=== PATIENT | male | born 1985 | race Caucasian/White ===

== ENCOUNTER 2018-02-13 06:15 | Day surgery (SDC) | payer OTHER ==
[2018-02-12 09:01] VITALS: BMI 23.6
--- NOTE | 2018-02-13 07:23 | HP ---
Admitting History and Physical - Admission History of Present Illness: Patient is 32 y/o male with a past medical history of scizoaffective disorder and medication induced pericarditis. Patient currently resides in [facility] and was transferred to [facility] for ect. This will be his first ECT, patient is a poor historian and as per medical record patient is being referred for ect because his current medication regimen has been ineffective. Patient reports he is not taking any medications. Patient does report auditory hallucinations and suicidal homicidation. Patient declines any visual hallucinations. Patient denies any homicidal ideation. History Source: Patient, Medical Record Limitations to Obtaining History: No Limitations - Smoking History Smoking history: Current every day smoker Have you smoked in the past 12 months: Yes Aproximately how many cigarettes per day: 10 - Alcohol/Substance Use Hx Alcohol Use: Yes (occasional) History of Substance Use: reports: Marijuana - Social History Usual Living Arrangement: Yes: [facility] ([facility] ADL: Independent Home Medications - Allergies Allergies/Adverse Reactions: Allergies Allergy/AdvReac Type Severity Reaction Status Date / Time clozapine [From Clozaril] Allergy Severe Rash Verified 02/11/18 15:18 lamotrigine [From Lamictal] Allergy Severe Rash Verified 02/11/18 15:17 - Home Medications Home Medications: Ambulatory Orders NK [No Known Home Medication] 02/11/18 Family Disease History - Family Disease History Family History: Denies Review of Systems - Review of Systems Constitutional: reports: No Symptoms Eyes: reports: No Symptoms HENT: reports: No Symptoms Neck: reports: No Symptoms Cardiovascular: reports: No Symptoms Respiratory: reports: No Symptoms Gastrointestinal: reports: No Symptoms Genitourinary: reports: No Symptoms Musculoskeletal: reports: No Symptoms Integumentary: reports: No Symptoms Neurological: reports: No Symptoms Endocrine: reports: No Symptoms Hematology/Lymphatic: reports: No Symptoms Psychiatric: reports: No Symptoms Physical Examination Vital Signs: Vital Signs Temperature 97.8 F 02/13/18 06:45 Pulse Rate 83 02/13/18 06:45 Respiratory Rate 18 02/13/18 06:45 Blood Pressure 120/83 02/13/18 06:45 O2 Sat by Pulse Oximetry (%) 96 02/13/18 06:45 Constitutional: Yes: Anxious, Thin Eyes: Yes: WNL, Conjunctiva Clear, EOM Intact HENT: Yes: WNL, Atraumatic, Normocephalic Neck: Yes: WNL, Supple, Trachea Midline Cardiovascular: Yes: WNL, Regular Rate and Rhythm, S1, S2 Respiratory: Yes: WNL, Regular, CTA Bilaterally Gastrointestinal: Yes: WNL, Normal Bowel Sounds, Soft Musculoskeletal: Yes: WNL Extremities: Yes: WNL Edema: No Peripheral Pulses WNL: Yes Peripheral Pulses: Left Radial: 4+, Right Radial: 4+, Left Doralis Pedis: 3+, Right Dorsalis Pedis: 3+, Left Femoral: 3+, Right Femoral: 3+ Integumentary: Yes: Tattoos, Other (closed commodones to back) Neurological: Yes: WNL, Alert, Oriented ...Motor Strength: WNL Psychiatric: Yes: WNL, Alert, Oriented Labs: reviewed 01/15/18 Imaging - Results EKG: Other (nsr) Assessment/Plan patient is a 32 y/o male that presents for ect, labs and ekg reviewed patient is medically optimized for procedure informed consent, risks/benefits to be obtained by Dr Kay
[2018-02-13] MEDS ORDERED: KETAMINE HCL 500 MG/10 ML VIAL ONE (07:47)
[2018-02-13 09:35] VITALS: TEMP 98
[2018-02-13 09:36] VITALS: BP 133/83; PULSE 83
== END 2018-02-13 09:30 ==
LOC: FECT 06:15
PROVIDERS: ATTEND Psychiatry & Neurology Psychiatry
PROC: GZB4ZZZ Other Electroconvulsive Therapy (ICD-10-PCS; principal; 2018-02-13 07:30)
DX: F25.1 Schizoaffective disorder, depressive type (principal)
CPT/HCPCS: 90870; 94760

== ENCOUNTER 2018-02-14 06:44 | Day surgery (SDC) | payer OTHER ==
[2018-02-11 15:30] VITALS: BMI 23.6
[2018-02-14] MEDS ORDERED: KETAMINE HCL 500 MG/10 ML VIAL ONE (08:12)
[2018-02-14 09:54] VITALS: TEMP 98
[2018-02-14 13:36] VITALS: BP 122/82; PULSE 78
== END 2018-02-14 10:15 ==
LOC: FECT 06:44
PROVIDERS: ATTEND Psychiatry & Neurology Psychiatry
PROC: GZB4ZZZ Other Electroconvulsive Therapy (ICD-10-PCS; principal; 2018-02-14 08:00)
DX: F25.1 Schizoaffective disorder, depressive type (principal)
CPT/HCPCS: 90870; 94760

== ENCOUNTER 2018-02-17 06:05 | Day surgery (SDC) | payer OTHER ==
[2018-02-14 16:32] VITALS: BMI 23.6
[2018-02-17] MEDS ORDERED: KETAMINE HCL 500 MG/10 ML VIAL ONE (06:51)
[2018-02-17 08:24] VITALS: TEMP 98.6
[2018-02-17 11:02] VITALS: BP 138/84; PULSE 72
== END 2018-02-17 09:15 ==
LOC: FECT 06:05
PROVIDERS: ATTEND Psychiatry & Neurology Psychiatry
PROC: GZB4ZZZ Other Electroconvulsive Therapy (ICD-10-PCS; principal; 2018-02-17 07:30)
DX: F25.1 Schizoaffective disorder, depressive type (principal)
CPT/HCPCS: 90870; 94760

== ENCOUNTER 2018-02-19 05:36 | Day surgery (SDC) | payer OTHER ==
[2018-02-14 16:35] VITALS: BMI 23.6
[2018-02-19] MEDS ORDERED: KETAMINE HCL 500 MG/10 ML VIAL ONE (06:48)
[2018-02-19] MEDS ORDERED: LACTATED RINGERS SOLUTION 1,000 ML IV SCH (07:00)
[2018-02-19 08:18] VITALS: TEMP 97.8
[2018-02-19 08:50] VITALS: BP 128/78; PULSE 86
== END 2018-02-19 08:50 ==
LOC: FECT 05:36
PROVIDERS: ATTEND Psychiatry & Neurology Psychiatry
PROC: GZB4ZZZ Other Electroconvulsive Therapy (ICD-10-PCS; principal; 2018-02-19 07:15)
DX: F25.1 Schizoaffective disorder, depressive type (principal)
CPT/HCPCS: 90870; 94760

== ENCOUNTER 2018-02-21 05:43 | Day surgery (SDC) | payer OTHER ==
[2018-02-14 17:15] VITALS: BMI 23.6
[2018-02-21] MEDS ORDERED: LACTATED RINGERS SOLUTION 1,000 ML IV SCH (07:30)
[2018-02-21] MEDS ORDERED: KETAMINE HCL 500 MG/10 ML VIAL ONE (07:52)
[2018-02-21 09:12] VITALS: TEMP 97.9
[2018-02-21 09:23] VITALS: BP 131/89; PULSE 89
== END 2018-02-21 09:30 ==
LOC: FECT 05:43
PROVIDERS: ATTEND Psychiatry & Neurology Psychiatry
PROC: GZB4ZZZ Other Electroconvulsive Therapy (ICD-10-PCS; principal; 2018-02-21 07:15)
DX: F25.1 Schizoaffective disorder, depressive type (principal)
CPT/HCPCS: 90870; 94760

== ENCOUNTER 2018-02-24 05:39 | Day surgery (SDC) | payer OTHER ==
[2018-02-24 07:03] VITALS: BMI 23.6
[2018-02-24] MEDS ORDERED: KETAMINE HCL 500 MG/10 ML VIAL ONE (07:17)
[2018-02-24 09:15] VITALS: TEMP 98.4
[2018-02-24 09:16] VITALS: BP 136/89; PULSE 89
== END 2018-02-24 09:20 ==
LOC: FECT 05:39
PROVIDERS: ATTEND Psychiatry & Neurology Psychiatry
PROC: GZB4ZZZ Other Electroconvulsive Therapy (ICD-10-PCS; principal; 2018-02-24 07:15)
DX: F25.1 Schizoaffective disorder, depressive type (principal)
CPT/HCPCS: 90870; 94760

== ENCOUNTER 2018-02-26 05:37 | Day surgery (SDC) | payer OTHER ==
[2018-02-20 09:53] VITALS: BMI 23.6
[2018-02-26 06:55] VITALS: TEMP 98
[2018-02-26] MEDS ORDERED: KETAMINE HCL 500 MG/10 ML VIAL ONE (07:12)
[2018-02-26] MEDS ORDERED: ONDANSETRON 4 MG/2 ML VIAL IVPUSH PRN (07:25)
[2018-02-26] MEDS ORDERED: LACTATED RINGERS SOLUTION 1,000 ML IV SCH (07:30)
[2018-02-26 08:52] VITALS: BP 130/85; PULSE 96
== END 2018-02-26 09:00 ==
LOC: FECT 05:37
PROVIDERS: ATTEND Psychiatry & Neurology Psychiatry
PROC: GZB4ZZZ Other Electroconvulsive Therapy (ICD-10-PCS; principal; 2018-02-26 07:00)
DX: F25.1 Schizoaffective disorder, depressive type (principal)
CPT/HCPCS: 90870; 94760

== ENCOUNTER 2018-02-28 05:50 | Day surgery (SDC) | payer OTHER ==
[2018-02-20 09:58] VITALS: BMI 23.6
[2018-02-28] MEDS ORDERED: KETAMINE HCL 500 MG/10 ML VIAL ONE (07:43)
[2018-02-28 08:45] VITALS: TEMP 98.1
[2018-02-28] MEDS ORDERED: ONDANSETRON 4 MG/2 ML VIAL IVPUSH PRN (09:05)
[2018-02-28] MEDS ORDERED: ACETAMINOPHEN 325 MG TABLET (FP) PO PRN (09:05)
[2018-02-28] MEDS ORDERED: PROMETHAZINE HCL 25 MG/1 ML VIAL IVPUSH PRN (09:05)
[2018-02-28 09:11] VITALS: BP 133/83; PULSE 86
[2018-02-28] MEDS ORDERED: LACTATED RINGERS SOLUTION 1,000 ML IV SCH (09:15)
== END 2018-02-28 09:10 ==
LOC: FECT 05:50
PROVIDERS: ATTEND Psychiatry & Neurology Psychiatry
PROC: GZB4ZZZ Other Electroconvulsive Therapy (ICD-10-PCS; principal; 2018-02-28 07:00)
DX: F25.1 Schizoaffective disorder, depressive type (principal)
CPT/HCPCS: 90870; 94760

== ENCOUNTER 2018-03-05 05:38 | Day surgery (SDC) | payer OTHER ==
[2018-02-27 13:43] VITALS: BMI 23.6
[2018-03-05] MEDS ORDERED: ONDANSETRON 4 MG/2 ML VIAL IVPUSH PRN (07:35)
[2018-03-05] MEDS ORDERED: ACETAMINOPHEN 325 MG TABLET (FP) PO PRN (07:35)
[2018-03-05] MEDS ORDERED: KETAMINE HCL 500 MG/10 ML VIAL ONE (07:42)
[2018-03-05] MEDS ORDERED: LACTATED RINGERS SOLUTION 1,000 ML IV SCH (07:45)
[2018-03-05 08:48] VITALS: TEMP 98
[2018-03-05 09:12] VITALS: BP 133/88; PULSE 81
== END 2018-03-05 09:30 ==
LOC: FECT 05:38
PROVIDERS: ATTEND Psychiatry & Neurology Psychiatry
PROC: GZB4ZZZ Other Electroconvulsive Therapy (ICD-10-PCS; principal; 2018-03-05 07:00)
DX: F25.1 Schizoaffective disorder, depressive type (principal)
CPT/HCPCS: 90870; 94760

== ENCOUNTER 2018-03-07 05:39 | Day surgery (SDC) | payer OTHER ==
[2018-02-27 13:49] VITALS: BMI 23.6
[2018-03-07] MEDS ORDERED: KETAMINE HCL 500 MG/10 ML VIAL ONE (07:24)
[2018-03-07 08:49] VITALS: TEMP 98.1
[2018-03-07 11:03] VITALS: BP 133/91; PULSE 80
== END 2018-03-07 09:00 ==
LOC: FECT 05:39
PROVIDERS: ATTEND Psychiatry & Neurology Psychiatry
PROC: GZB4ZZZ Other Electroconvulsive Therapy (ICD-10-PCS; principal; 2018-03-07 07:00)
DX: F25.1 Schizoaffective disorder, depressive type (principal)
CPT/HCPCS: 90870; 94760

== ENCOUNTER 2018-03-10 05:39 | Day surgery (SDC) | payer OTHER ==
[2018-02-28 11:09] VITALS: BMI 23.6
[2018-03-10] MEDS ORDERED: KETAMINE HCL 500 MG/10 ML VIAL ONE (06:59)
[2018-03-10 07:59] VITALS: TEMP 97.7
[2018-03-10 08:28] VITALS: PULSE 76
[2018-03-10 10:09] VITALS: BP 126/87
== END 2018-03-10 10:00 | disposition home or self-care (01) ==
LOC: FECT 05:39
PROVIDERS: ATTEND Psychiatry & Neurology Psychiatry
PROC: GZB4ZZZ Other Electroconvulsive Therapy (ICD-10-PCS; principal; 2018-03-10 07:00)
DX: F25.1 Schizoaffective disorder, depressive type (principal)
CPT/HCPCS: 90870; 94760

== ENCOUNTER 2018-03-12 05:45 | Day surgery (SDC) | payer OTHER ==
[2018-03-10 09:17] VITALS: BMI 23.6
[2018-03-12] MEDS ORDERED: KETAMINE HCL 500 MG/10 ML VIAL ONE (07:24)
[2018-03-12 07:55] VITALS: TEMP 97.7
[2018-03-12] MEDS ORDERED: ACETAMINOPHEN 325 MG TABLET (FP) PO PRN (07:56)
[2018-03-12] MEDS ORDERED: ONDANSETRON 4 MG/2 ML VIAL IVPUSH PRN (07:56)
[2018-03-12] MEDS ORDERED: PROMETHAZINE HCL 25 MG/1 ML VIAL IVPUSH PRN (07:56)
[2018-03-12] MEDS ORDERED: LACTATED RINGERS SOLUTION 1,000 ML IV SCH (08:00)
[2018-03-12 09:22] VITALS: BP 135/85; PULSE 76
== END 2018-03-12 10:00 ==
LOC: FECT 05:45
PROVIDERS: ATTEND Psychiatry & Neurology Psychiatry
PROC: GZB4ZZZ Other Electroconvulsive Therapy (ICD-10-PCS; principal; 2018-03-12 07:45)
DX: F25.1 Schizoaffective disorder, depressive type (principal)

== ENCOUNTER 2018-03-14 05:45 | Day surgery (SDC) | payer OTHER ==
[2018-03-10 09:01] VITALS: BMI 23.6
[2018-03-14] MEDS ORDERED: KETAMINE HCL 500 MG/10 ML VIAL ONE (06:52)
[2018-03-14] MEDS ORDERED: PROMETHAZINE HCL 25 MG/1 ML VIAL IVPUSH PRN (07:54)
[2018-03-14] MEDS ORDERED: ONDANSETRON 4 MG/2 ML VIAL IVPUSH PRN (07:54)
[2018-03-14] MEDS ORDERED: ACETAMINOPHEN 325 MG TABLET (FP) PO PRN (07:54)
[2018-03-14] MEDS ORDERED: LACTATED RINGERS SOLUTION 1,000 ML IV SCH (08:00)
--- NOTE | 2018-03-14 08:14 | HP ---
Admitting History and Physical - Admission History of Present Illness: Patient is a 32 y/o male with a past medical history of scizoaffective disorder and medication induced pancreatitis, patient presents of ect, his last ect was 03/12/18. Patient voices no complaints. He reports feeling well, he denies any suicidal or homicidal ideation, visual or auditory hallucinations. History Source: Patient Limitations to Obtaining History: No Limitations - Smoking History Smoking history: Current every day smoker Have you smoked in the past 12 months: Yes Aproximately how many cigarettes per day: 10 - Alcohol/Substance Use Hx Alcohol Use: Yes (OCCASIONAL) History of Substance Use: reports: Marijuana - Social History ADL: Independent Home Medications - Allergies Allergies/Adverse Reactions: Allergies Allergy/AdvReac Type Severity Reaction Status Date / Time clozapine [From Clozaril] Allergy Severe Rash Verified 02/11/18 15:18 lamotrigine [From Lamictal] Allergy Severe Rash Verified 02/11/18 15:17 - Home Medications Home Medications: Ambulatory Orders NK [No Known Home Medication] 02/11/18 Family Disease History - Family Disease History Family History: Denies Review of Systems - Review of Systems Constitutional: reports: No Symptoms Eyes: reports: No Symptoms HENT: reports: No Symptoms Neck: reports: No Symptoms Cardiovascular: reports: No Symptoms Respiratory: reports: No Symptoms Gastrointestinal: reports: No Symptoms Genitourinary: reports: No Symptoms Musculoskeletal: reports: No Symptoms Integumentary: reports: No Symptoms Neurological: reports: No Symptoms Endocrine: reports: No Symptoms Hematology/Lymphatic: reports: No Symptoms Psychiatric: reports: No Symptoms Physical Examination Vital Signs: Vital Signs Temperature 98.0 F 03/14/18 07:40 Pulse Rate 67 03/14/18 07:40 Respiratory Rate 14 03/14/18 07:40 Blood Pressure 131/90 03/14/18 07:40 O2 Sat by Pulse Oximetry (%) 100 03/14/18 07:33 Constitutional: Yes: Well Nourished, No Distress, Calm Eyes: Yes: WNL, Conjunctiva Clear, EOM Intact HENT: Yes: WNL, Atraumatic, Normocephalic Neck: Yes: WNL, Supple, Trachea Midline Cardiovascular: Yes: WNL, Regular Rate and Rhythm, S1, S2 Respiratory: Yes: WNL, Regular, CTA Bilaterally Gastrointestinal: Yes: WNL, Normal Bowel Sounds, Soft ...Rectal Exam: Yes: Deferred Renal/: Yes: WNL Breast(s): Yes: WNL Musculoskeletal: Yes: WNL Extremities: Yes: WNL Edema: No Peripheral Pulses WNL: Yes Peripheral Pulses: Left Radial: 4+, Right Radial: 4+, Left Doralis Pedis: 3+, Right Dorsalis Pedis: 3+, Left Femoral: 3+, Right Femoral: 3+ Integumentary: Yes: WNL Neurological: Yes: WNL, Alert, Oriented ...Motor Strength: WNL Psychiatric: Yes: WNL, Alert, Oriented Labs: reviewed 01/15/18 Imaging - Results EKG: Image Reviewed, Other (nsr) Assessment/Plan patient is a 32 y/o male that presents for ect, labs and ekg reviewed patient is medically optimized for procedure informed consent, risk/benefits to be obtained by Dr Kay
[2018-03-14 08:33] VITALS: TEMP 97.7
[2018-03-14 08:35] VITALS: BP 123/80; PULSE 76
== END 2018-03-14 08:50 ==
LOC: FECT 05:45
PROVIDERS: ATTEND Psychiatry & Neurology Psychiatry
PROC: GZB4ZZZ Other Electroconvulsive Therapy (ICD-10-PCS; principal; 2018-03-14 08:00)
DX: F25.1 Schizoaffective disorder, depressive type (principal)

== ENCOUNTER 2018-03-19 05:42 | Day surgery (SDC) | payer OTHER ==
[2018-03-10 09:09] VITALS: BMI 23.6
[2018-03-19] MEDS ORDERED: KETAMINE HCL 500 MG/10 ML VIAL ONE (07:25)
[2018-03-19] MEDS ORDERED: ONDANSETRON 4 MG/2 ML VIAL IVPUSH PRN (08:59)
[2018-03-19] MEDS ORDERED: LACTATED RINGERS SOLUTION 1,000 ML IV SCH (09:00)
[2018-03-21] MEDS ORDERED: KETAMINE HCL 500 MG/10 ML VIAL ONE (07:04)
[2018-03-21 08:56] VITALS: TEMP 98.6
[2018-03-21 08:58] VITALS: BP 119/77; PULSE 66
== END 2018-03-19 09:10 ==
LOC: FECT 05:42
PROVIDERS: ATTEND Psychiatry & Neurology Psychiatry
PROC: GZB4ZZZ Other Electroconvulsive Therapy (ICD-10-PCS; principal; 2018-03-19 07:30)
DX: F25.1 Schizoaffective disorder, depressive type (principal)
CPT/HCPCS: 90870; 94760

== ENCOUNTER 2018-03-21 05:40 | Day surgery (SDC) | payer OTHER ==
[2018-03-21 06:53] VITALS: TEMP 98.2; BMI 23.6
[2018-03-21 08:12] VITALS: PULSE 73
[2018-03-21 09:33] VITALS: BP 115/68
== END 2018-03-21 09:25 | disposition home or self-care (01) ==
LOC: FECT 05:40
PROVIDERS: ATTEND Psychiatry & Neurology Psychiatry
PROC: GZB4ZZZ Other Electroconvulsive Therapy (ICD-10-PCS; principal; 2018-03-21 07:30)
DX: F25.1 Schizoaffective disorder, depressive type (principal)
CPT/HCPCS: 90870; 94760

== ENCOUNTER 2018-03-24 05:41 | Day surgery (SDC) | payer OTHER ==
[2018-03-10 09:05] VITALS: BMI 23.6
[2018-03-24] MEDS ORDERED: KETAMINE HCL 500 MG/10 ML VIAL ONE (07:08)
[2018-03-24 08:35] VITALS: BP 138/88; PULSE 64; TEMP 97.6
== END 2018-03-24 08:35 ==
LOC: FECT 05:41
PROVIDERS: ATTEND Psychiatry & Neurology Psychiatry
PROC: GZB4ZZZ Other Electroconvulsive Therapy (ICD-10-PCS; principal; 2018-03-24 07:15)
DX: F25.1 Schizoaffective disorder, depressive type (principal)
CPT/HCPCS: 90870; 94760

== ENCOUNTER 2018-03-26 05:37 | Day surgery (SDC) | payer OTHER ==
[2018-03-24 11:47] VITALS: BMI 23.6
[2018-03-26 06:31] VITALS: TEMP 98.2
[2018-03-26] MEDS ORDERED: KETAMINE HCL 500 MG/10 ML VIAL ONE (06:53)
[2018-03-26 08:53] VITALS: BP 132/88; PULSE 77
== END 2018-03-26 08:30 ==
LOC: FECT 05:37
PROVIDERS: ATTEND Psychiatry & Neurology Psychiatry
PROC: GZB4ZZZ Other Electroconvulsive Therapy (ICD-10-PCS; principal; 2018-03-26 07:30)
DX: F25.1 Schizoaffective disorder, depressive type (principal)
CPT/HCPCS: 90870; 94760

== ENCOUNTER 2018-03-28 05:41 | Day surgery (SDC) | payer OTHER ==
[2018-03-24 12:04] VITALS: BMI 23.6
[2018-03-28 08:26] VITALS: TEMP 98.2
[2018-03-28 09:09] VITALS: BP 126/82; PULSE 78
== END 2018-03-28 09:12 | disposition home or self-care (01) ==
LOC: FECT 05:41
PROVIDERS: ATTEND Psychiatry & Neurology Psychiatry
PROC: GZB4ZZZ Other Electroconvulsive Therapy (ICD-10-PCS; principal; 2018-03-28 08:00)
DX: F25.1 Schizoaffective disorder, depressive type (principal)
CPT/HCPCS: 90870; 94760

== ENCOUNTER 2018-04-04 05:39 | Day surgery (SDC) | payer OTHER ==
[2018-04-04 06:58] VITALS: BMI 23.6
[2018-04-04] MEDS ORDERED: KETAMINE HCL 500 MG/10 ML VIAL ONE (07:23)
[2018-04-04 08:24] VITALS: TEMP 97.8
[2018-04-04 08:43] VITALS: BP 124/87; PULSE 80
== END 2018-04-04 09:20 ==
LOC: FECT 05:39
PROVIDERS: ATTEND Psychiatry & Neurology Psychiatry
PROC: GZB4ZZZ Other Electroconvulsive Therapy (ICD-10-PCS; principal; 2018-04-04 07:15)
DX: F25.1 Schizoaffective disorder, depressive type (principal)
CPT/HCPCS: 90870; 94760

== ENCOUNTER 2018-04-10 05:45 | Day surgery (SDC) | payer OTHER ==
[2018-04-04 14:25] VITALS: BMI 23.6
[2018-04-10 06:47] VITALS: TEMP 98.2
[2018-04-10] MEDS ORDERED: KETAMINE HCL 500 MG/10 ML VIAL ONE (06:57)
[2018-04-10 08:25] VITALS: BP 133/86; PULSE 87
== END 2018-04-10 08:40 ==
LOC: FECT 05:45
PROVIDERS: ATTEND Psychiatry & Neurology Psychiatry
PROC: GZB4ZZZ Other Electroconvulsive Therapy (ICD-10-PCS; principal; 2018-04-10 07:30)
DX: F25.9 Schizoaffective disorder, unspecified (principal)
CPT/HCPCS: 90870; 94760

== ENCOUNTER 2018-04-16 05:48 | Day surgery (SDC) | payer OTHER ==
--- NOTE | 2018-04-16 07:41 | HP ---
CHIEF COMPLAINT: Schizoaffective/bipolar disorder PCP: Dr. Kendall Saucedo, [place], [place] Primary Psych: Inpatient at [facility] HISTORY OF PRESENT ILLNESS: The patient is a 32 year-old male with a PMH significant for schizoaffective/ bipolar disorder and medication-induced pancreatitis. He has been receiving ECT since He presents today for ECT. Events since last ECT: None PAST MEDICAL HISTORY: Schizoaffective/bipolar disorder Pancreatitis PAST SURGICAL HISTORY: None reported Social History: Smoking: currrent every day Alcohol:occasional Drugs: denies Family History: Allergies clozapine [From Clozaril] Allergy (Severe, Verified 04/11/18 14:44) Rash lamotrigine [From Lamictal] Allergy (Severe, Verified 04/11/18 14:44) Rash HOME MEDICATIONS: Home Medications Medication Instructions Recorded [place] Carbonate [Eskalith -] 600 mg PO BID 03/24/18 Haloperidol [Haldol -] 5 mg PO BID 04/04/18 Benztropine Mesylate [Cogentin -] 1 mg PO BID PRN 04/10/18 Divalproex [Depakote -] 500 mg PO HS 04/10/18 Olanzapine 5 mg PO BID PRN 04/10/18 Olanzapine [Zyprexa] 15 mg IM BID PRN 04/10/18 REVIEW OF SYSTEMS CONSTITUTIONAL: Absent: fever, chills, diaphoresis, generalized weakness, malaise, loss of appetite, weight change HEENT: Absent: rhinorrhea, nasal congestion, throat pain, throat swelling, difficulty swallowing, mouth swelling, ear pain, eye pain, visual changes CARDIOVASCULAR: Absent: chest pain, syncope, palpitations, irregular heart rate, lightheadedness , peripheral edema RESPIRATORY: Absent: cough, shortness of breath, dyspnea with exertion, orthopnea, wheezing, stridor, hemoptysis GASTROINTESTINAL: Absent: abdominal pain, abdominal distension, nausea, vomiting, diarrhea, constipation, melena, hematochezia GENITOURINARY: Absent: dysuria, frequency, urgency, hesitancy, hematuria, flank pain, genital pain MUSCULOSKELETAL: Absent: myalgia, arthralgia, joint swelling, back pain, neck pain SKIN: Absent: rash, itching, pallor HEMATOLOGIC/IMMUNOLOGIC: Absent: easy bleeding, easy bruising, lymphadenopathy, frequent infections ENDOCRINE: Absent: unexplained weight gain, unexplained weight loss, heat intolerance, cold intolerance NEUROLOGIC: Absent: headache, focal weakness or paresthesias, dizziness, unsteady gait, seizure, mental status changes, bladder or bowel incontinence PHYSICAL EXAMINATION GENERAL: Awake, alert, and fully oriented, in no acute distress. HEAD: Normal with no signs of trauma. LUNGS: Breath sounds equal, clear to auscultation bilaterally. No wheezes, and no crackles. No accessory muscle use. HEART: Regular rate and rhythm, normal S1 and S2 without murmur, rub or gallop. ABDOMEN: Soft, nontender, not distended, normoactive bowel sounds, no guarding, no rebound, no masses. No hepatomegaly or splenomegaly. MUSCULOSKELETAL: Normal range of motion at all joints. No bony deformities or tenderness. No CVA tenderness. UPPER EXTREMITIES: 2+ pulses, warm, well-perfused. No cyanosis. No clubbing. No peripheral edema. LOWER EXTREMITIES: 2+ pulses, warm, well-perfused. No calf tenderness. No peripheral edema. NEUROLOGICAL: Cranial nerves II-XII intact. Normal speech. Normal gait. ASSESSMENT/PLAN: 32 year-old male with a PMH significant for schizoaffective/bipolar disorder and medication-induced pancreatitis. He presents today for ECT. Cardiac --no cardiac history --Revised Cardiac Risk Index for Pre-Operative Risk: 0 points, 0.4% risk of major cardiac event Pulmonary --no pulmonary history Neurological --no neurological or neurosurgical history; no history of trauma Anesthesia --no known history of problems with anesthesia ECT is a low risk procedure. The relative benefits of the planned procedure outweigh the relative risks for this patient at this time. Visit type - Emergency Visit Emergency Visit: No - New Patient This patient is new to me today: Yes Date on this admission: 04/16/18 - Critical Care Critical Care patient: No
[2018-04-16 07:56] VITALS: BMI 23.6
[2018-04-16] MEDS ORDERED: KETAMINE HCL 500 MG/10 ML VIAL ONE (08:41)
[2018-04-16 10:36] VITALS: PULSE 88; TEMP 97.8
[2018-04-16 10:47] VITALS: BP 121/76
== END 2018-04-16 10:20 | disposition home or self-care (01) ==
LOC: FECT 05:48
PROVIDERS: ATTEND Psychiatry & Neurology Psychiatry
PROC: GZB4ZZZ Other Electroconvulsive Therapy (ICD-10-PCS; principal; 2018-04-16 08:15)
DX: F25.1 Schizoaffective disorder, depressive type (principal)
CPT/HCPCS: 90870; 94760

== ENCOUNTER 2018-04-24 05:47 | Day surgery (SDC) | payer OTHER ==
[2018-04-24 06:41] VITALS: TEMP 97.6; BMI 23.6
[2018-04-24] MEDS ORDERED: KETAMINE HCL 500 MG/10 ML VIAL ONE (06:57)
[2018-04-24 08:22] VITALS: BP 132/82; PULSE 78
== END 2018-04-24 08:20 ==
LOC: FECT 05:47
PROVIDERS: ATTEND Psychiatry & Neurology Psychiatry
PROC: GZB4ZZZ Other Electroconvulsive Therapy (ICD-10-PCS; principal; 2018-04-24 07:45)
DX: F25.1 Schizoaffective disorder, depressive type (principal)
CPT/HCPCS: 90870; 94760

== ENCOUNTER 2018-05-01 05:42 | Day surgery (SDC) | payer OTHER ==
[2018-05-01 06:46] VITALS: BMI 23.6
[2018-05-01] MEDS ORDERED: KETAMINE HCL 500 MG/10 ML VIAL ONE (07:34)
[2018-05-01 08:35] VITALS: TEMP 97.5
[2018-05-01 08:59] VITALS: BP 125/85; PULSE 69
== END 2018-05-01 09:15 ==
LOC: FASU 05:42
PROVIDERS: ATTEND Psychiatry & Neurology Psychiatry
PROC: GZB4ZZZ Other Electroconvulsive Therapy (ICD-10-PCS; principal; 2018-05-01 07:15)
DX: F25.0 Schizoaffective disorder, bipolar type (principal)
CPT/HCPCS: 90870; 94760

== ENCOUNTER 2018-05-08 05:45 | Day surgery (SDC) | payer OTHER ==
[2018-05-08 06:39] VITALS: TEMP 98; BMI 23.6
[2018-05-08] MEDS ORDERED: KETAMINE HCL 500 MG/10 ML VIAL ONE (07:04)
[2018-05-08 08:18] VITALS: PULSE 77
[2018-05-08 08:47] VITALS: BP 133/74
== END 2018-05-08 08:30 ==
LOC: FECT 05:45
PROVIDERS: ATTEND Psychiatry & Neurology Psychiatry
PROC: GZB4ZZZ Other Electroconvulsive Therapy (ICD-10-PCS; principal; 2018-05-08 07:30)
DX: F25.9 Schizoaffective disorder, unspecified (principal)
CPT/HCPCS: 90870; 94760

== ENCOUNTER 2018-05-15 05:41 | Day surgery (SDC) | payer OTHER ==
[2018-05-15 06:52] VITALS: BMI 23.6
[2018-05-15] MEDS ORDERED: KETAMINE HCL 500 MG/10 ML VIAL ONE (07:22)
[2018-05-15 08:32] VITALS: TEMP 97.9
[2018-05-15 08:42] VITALS: BP 128/81; PULSE 73
== END 2018-05-15 08:43 | disposition home or self-care (01) ==
LOC: FECT 05:41
PROVIDERS: ATTEND Psychiatry & Neurology Psychiatry
PROC: GZB4ZZZ Other Electroconvulsive Therapy (ICD-10-PCS; principal; 2018-05-15 07:30)
DX: F25.1 Schizoaffective disorder, depressive type (principal)
CPT/HCPCS: 90870; 94760

== ENCOUNTER 2018-05-22 05:45 | Day surgery (SDC) | payer OTHER ==
[2018-05-22 07:36] VITALS: BMI 23.6
--- NOTE | 2018-05-22 07:42 | HP ---
CHIEF COMPLAINT: Schizoaffective/bipolar disorder PCP: Dr. Kendall Saucedo, [place], [place] Primary Psych: Inpatient at [facility] HISTORY OF PRESENT ILLNESS: The patient is a 32 year-old male with a PMH significant for schizoaffective/ bipolar disorder and medication-induced pancreatitis. He began ECT in January 2018. He presents today for ECT. Events since last ECT: * Increased depakote 500mg to 750mg qhs - tolerating well PAST MEDICAL HISTORY: Schizoaffective/bipolar disorder Pancreatitis PAST SURGICAL HISTORY: None reported Social History: Smoking: currrent every day Alcohol:occasional Drugs: denies Allergies clozapine [From Clozaril] Allergy (Severe, Verified 04/11/18 14:44) Rash lamotrigine [From Lamictal] Allergy (Severe, Verified 04/11/18 14:44) Rash HOME MEDICATIONS: Home Medications Medication Instructions Recorded [place] Carbonate [Eskalith -] 600 mg PO BID 03/24/18 Haloperidol [Haldol -] 5 mg PO BID 04/04/18 Benztropine Mesylate [Cogentin -] 1 mg PO BID PRN 04/10/18 Divalproex [Depakote -] 750 mg PO HS 04/10/18 Olanzapine 5 mg PO BID PRN 04/10/18 Olanzapine [Zyprexa] 15 mg IM BID PRN 04/10/18 REVIEW OF SYSTEMS CONSTITUTIONAL: Absent: fever, chills, diaphoresis, generalized weakness, malaise, loss of appetite, weight change HEENT: Absent: rhinorrhea, nasal congestion, throat pain, throat swelling, difficulty swallowing, mouth swelling, ear pain, eye pain, visual changes CARDIOVASCULAR: Absent: chest pain, syncope, palpitations, irregular heart rate, lightheadedness , peripheral edema RESPIRATORY: Absent: cough, shortness of breath, dyspnea with exertion, orthopnea, wheezing, stridor, hemoptysis GASTROINTESTINAL: Absent: abdominal pain, abdominal distension, nausea, vomiting, diarrhea, constipation, melena, hematochezia GENITOURINARY: Absent: dysuria, frequency, urgency, hesitancy, hematuria, flank pain, genital pain MUSCULOSKELETAL: Absent: myalgia, arthralgia, joint swelling, back pain, neck pain SKIN: Absent: rash, itching, pallor HEMATOLOGIC/IMMUNOLOGIC: Absent: easy bleeding, easy bruising, lymphadenopathy, frequent infections ENDOCRINE: Absent: unexplained weight gain, unexplained weight loss, heat intolerance, cold intolerance NEUROLOGIC: Absent: headache, focal weakness or paresthesias, dizziness, unsteady gait, seizure, mental status changes, bladder or bowel incontinence PHYSICAL EXAMINATION Vital Signs - 24 hr 05/22/18 07:32 Temperature 98.2 F Pulse Rate 69 Respiratory 18 Rate Blood Pressure 104/68 O2 Sat by Pulse 97 Oximetry (%) GENERAL: Awake, alert, and fully oriented, in no acute distress. HEAD: Normal with no signs of trauma. EYES: Pupils equal, round and reactive to light, sclera anicteric, conjunctiva clear. LUNGS: Breath sounds equal, clear to auscultation bilaterally. No wheezes, and no crackles. No accessory muscle use. HEART: Regular rate and rhythm, normal S1 and S2 ABDOMEN: Soft, nontender, not distended MUSCULOSKELETAL: Normal range of motion at all joints. No bony deformities or tenderness. No CVA tenderness. UPPER EXTREMITIES: 2+ pulses, warm, well-perfused. No cyanosis. No clubbing. No peripheral edema. LOWER EXTREMITIES: 2+ pulses, warm, well-perfused. No calf tenderness. No peripheral edema. NEUROLOGICAL: Cranial nerves II-XII intact. Normal speech. ASSESSMENT/PLAN: The patient is a 32 year-old male with a PMH significant for schizoaffective/ bipolar disorder and medication-induced pancreatitis. He presents today for ECT. Cardiac --no cardiac history --Revised Cardiac Risk Index for Pre-Operative Risk: 0 points, 0.4% risk of major cardiac event Pulmonary --no pulmonary history Neurological --no neurological or neurosurgical history; no history of trauma Anesthesia --no reported problems with anesthesia ECT is a low risk procedure. The relative benefits of the planned procedure outweigh the relative risks for this patient at this time. Visit type - Emergency Visit Emergency Visit: No - New Patient This patient is new to me today: Yes Date on this admission: 05/22/18 - Critical Care Critical Care patient: No
[2018-05-22] MEDS ORDERED: KETAMINE HCL 500 MG/10 ML VIAL ONE (08:03)
[2018-05-22 09:19] VITALS: PULSE 74; TEMP 97.5
[2018-05-22 09:59] VITALS: BP 118/78
== END 2018-05-22 09:45 | disposition home or self-care (01) ==
LOC: FECT 05:45
PROVIDERS: ATTEND Psychiatry & Neurology Psychiatry
PROC: GZB4ZZZ Other Electroconvulsive Therapy (ICD-10-PCS; principal; 2018-05-22 07:30)
DX: F25.1 Schizoaffective disorder, depressive type (principal)
CPT/HCPCS: 90870; 94760

== ENCOUNTER 2018-05-29 05:54 | Day surgery (SDC) | payer OTHER ==
[2018-05-29 07:00] VITALS: TEMP 97.7; BMI 22.5
[2018-05-29] MEDS ORDERED: KETAMINE HCL 500 MG/10 ML VIAL ONE (08:18)
[2018-05-29 10:04] VITALS: BP 122/87; PULSE 77
== END 2018-05-29 09:40 | disposition home or self-care (01) ==
LOC: FECT 05:54
PROVIDERS: ATTEND Psychiatry & Neurology Psychiatry
PROC: GZB4ZZZ Other Electroconvulsive Therapy (ICD-10-PCS; principal; 2018-05-29 08:15)
DX: F25.9 Schizoaffective disorder, unspecified (principal)
CPT/HCPCS: 90870; 94760

== ENCOUNTER 2018-06-05 05:49 | Day surgery (SDC) | payer OTHER ==
[2018-06-05 06:33] VITALS: BMI 22.5
[2018-06-05] MEDS ORDERED: KETAMINE HCL SYRINGES 150 MG/3 ML VIAL ONE (06:55)
[2018-06-05 08:16] VITALS: TEMP 97.4
[2018-06-05 08:37] VITALS: BP 122/82; PULSE 77
== END 2018-06-05 08:30 ==
LOC: FECT 05:49
PROVIDERS: ATTEND Psychiatry & Neurology Psychiatry
PROC: GZB4ZZZ Other Electroconvulsive Therapy (ICD-10-PCS; principal; 2018-06-05 08:15)
DX: F25.1 Schizoaffective disorder, depressive type (principal)
CPT/HCPCS: 90870; 94760

== ENCOUNTER 2018-06-09 05:52 | Day surgery (SDC) | payer OTHER ==
[2018-06-09 06:58] VITALS: BMI 22.5
[2018-06-09] MEDS ORDERED: KETAMINE HCL 500 MG/10 ML VIAL ONE (07:23)
[2018-06-09 08:52] VITALS: TEMP 97.8
[2018-06-09 08:53] VITALS: BP 139/82; PULSE 82
[2018-06-09] MEDS ORDERED: ACETAMINOPHEN 325 MG TABLET (FP) PO PRN (09:41)
[2018-06-09] MEDS ORDERED: PROMETHAZINE HCL 25 MG/1 ML VIAL IVPB PRN (09:41)
[2018-06-09] MEDS ORDERED: LACTATED RINGERS SOLUTION 1,000 ML IV SCH (09:45)
== END 2018-06-09 08:57 | disposition home or self-care (01) ==
LOC: FECT 05:52
PROVIDERS: ATTEND Psychiatry & Neurology Psychiatry
PROC: GZB4ZZZ Other Electroconvulsive Therapy (ICD-10-PCS; principal; 2018-06-09 08:00)
DX: F25.1 Schizoaffective disorder, depressive type (principal)
CPT/HCPCS: 90870; 94760

== ENCOUNTER 2018-06-12 05:44 | Day surgery (SDC) | payer OTHER ==
[2018-06-12 06:35] VITALS: BMI 22.5
[2018-06-12] MEDS ORDERED: KETAMINE HCL SYRINGES 150 MG/3 ML VIAL ONE (06:55)
[2018-06-12] MEDS ORDERED: ONDANSETRON 4 MG/2 ML VIAL IVPUSH PRN (07:05)
[2018-06-12] MEDS ORDERED: LACTATED RINGERS SOLUTION 1,000 ML IV SCH (07:15)
[2018-06-12 07:56] VITALS: PULSE 88; TEMP 98.2
[2018-06-12 08:11] VITALS: BP 120/72
== END 2018-06-12 08:15 ==
LOC: FECT 05:44
PROVIDERS: ATTEND Psychiatry & Neurology Psychiatry
PROC: GZB4ZZZ Other Electroconvulsive Therapy (ICD-10-PCS; principal; 2018-06-12 07:45)
DX: F25.0 Schizoaffective disorder, bipolar type (principal)
CPT/HCPCS: 90870; 94760

== ENCOUNTER 2018-06-16 05:47 | Day surgery (SDC) | payer OTHER ==
[2018-06-16 07:15] VITALS: TEMP 98; BMI 22.5
[2018-06-16] MEDS ORDERED: KETAMINE HCL 500 MG/10 ML VIAL ONE (08:34)
[2018-06-16 10:09] VITALS: BP 139/89; PULSE 81
== END 2018-06-16 10:10 ==
LOC: FECT 05:47
PROVIDERS: ATTEND Psychiatry & Neurology Psychiatry
PROC: GZB4ZZZ Other Electroconvulsive Therapy (ICD-10-PCS; principal; 2018-06-16 07:30)
DX: F25.0 Schizoaffective disorder, bipolar type (principal)
CPT/HCPCS: 90870; 94760

== ENCOUNTER 2018-06-19 05:48 | Day surgery (SDC) | payer OTHER ==
[2018-06-19 06:39] VITALS: BMI 22.5
[2018-06-19] MEDS ORDERED: KETAMINE HCL SYRINGES 150 MG/3 ML VIAL ONE (06:58)
[2018-06-19 08:13] VITALS: TEMP 97.8
[2018-06-19 08:37] VITALS: BP 134/96; PULSE 94
== END 2018-06-19 08:37 | disposition home or self-care (01) ==
LOC: FECT 05:48
PROVIDERS: ATTEND Psychiatry & Neurology Psychiatry
PROC: GZB4ZZZ Other Electroconvulsive Therapy (ICD-10-PCS; principal; 2018-06-19 07:30)
DX: F25.0 Schizoaffective disorder, bipolar type (principal)
CPT/HCPCS: 90870; 94760

== ENCOUNTER 2018-06-23 05:42 | Day surgery (SDC) | payer OTHER ==
[2018-06-23 07:05] VITALS: BMI 22.5
--- NOTE | 2018-06-23 07:35 | HP ---
CHIEF COMPLAINT: Schizoaffective/bipolar disorder PCP: Dr. Kendall Saucedo, [place], [place] Primary Psych: Inpatient at [facility] HISTORY OF PRESENT ILLNESS: The patient is a 32 year-old male with a PMH significant for schizoaffective/ bipolar disorder and medication-induced pancreatitis. He began ECT in January 2018. He presents today for ECT. Events since last ECT: * None reported PAST MEDICAL HISTORY: Schizoaffective/bipolar disorder Pancreatitis PAST SURGICAL HISTORY: None reported Social History: Smoking: currrent every day Alcohol:occasional Drugs: denies Allergies clozapine [From Clozaril] Allergy (Severe, Verified 04/11/18 14:44) Rash lamotrigine [From Lamictal] Allergy (Severe, Verified 04/11/18 14:44) Rash HOME MEDICATIONS: Home Medications Medication Instructions Recorded [place] Carbonate [Eskalith -] 600 mg PO BID 03/24/18 Haloperidol [Haldol -] 5 mg PO BID 04/04/18 Benztropine Mesylate [Cogentin -] 1 mg PO BID PRN 04/10/18 Divalproex [Depakote -] 1,000 mg PO HS 04/10/18 Olanzapine [Zyprexa] 15 mg IM BID PRN 04/10/18 Olanzapine 15 mg PO BID 05/30/18 REVIEW OF SYSTEMS CONSTITUTIONAL: Absent: fever, chills, diaphoresis, generalized weakness, malaise, loss of appetite, weight change HEENT: Absent: rhinorrhea, nasal congestion, throat pain, throat swelling, difficulty swallowing, mouth swelling, ear pain, eye pain, visual changes CARDIOVASCULAR: Absent: chest pain, syncope, palpitations, irregular heart rate, lightheadedness , peripheral edema RESPIRATORY: Absent: cough, shortness of breath, dyspnea with exertion, orthopnea, wheezing, stridor, hemoptysis GASTROINTESTINAL: Absent: abdominal pain, abdominal distension, nausea, vomiting, diarrhea, constipation, melena, hematochezia GENITOURINARY: Absent: dysuria, frequency, urgency, hesitancy, hematuria, flank pain, genital pain MUSCULOSKELETAL: Absent: myalgia, arthralgia, joint swelling, back pain, neck pain SKIN: Absent: rash, itching, pallor HEMATOLOGIC/IMMUNOLOGIC: Absent: easy bleeding, easy bruising, lymphadenopathy, frequent infections ENDOCRINE: Absent: unexplained weight gain, unexplained weight loss, heat intolerance, cold intolerance NEUROLOGIC: Absent: headache, focal weakness or paresthesias, dizziness, unsteady gait, seizure, mental status changes, bladder or bowel incontinence PHYSICAL EXAMINATION Vital Signs - 24 hr 06/23/18 06:59 Temperature 98.1 F Pulse Rate 70 Respiratory 18 Rate Blood Pressure 98/66 O2 Sat by Pulse 99 Oximetry (%) GENERAL: Awake, alert, and fully oriented, in no acute distress. HEAD: Normal with no signs of trauma. EYES: Pupils equal, round and reactive to light, sclera anicteric, conjunctiva clear. LUNGS: Breath sounds equal, clear to auscultation bilaterally. No wheezes, and no crackles. No accessory muscle use. HEART: Regular rate and rhythm, normal S1 and S2 ABDOMEN: Soft, nontender, not distended MUSCULOSKELETAL: Normal range of motion at all joints. No bony deformities or tenderness. No CVA tenderness. UPPER EXTREMITIES: 2+ pulses, warm, well-perfused. No cyanosis. No clubbing. No peripheral edema. LOWER EXTREMITIES: 2+ pulses, warm, well-perfused. No calf tenderness. No peripheral edema. NEUROLOGICAL: Cranial nerves II-XII intact. Normal speech. ASSESSMENT/PLAN: The patient is a 32 year-old male with a PMH significant for schizoaffective/ bipolar disorder and medication-induced pancreatitis. He presents today for ECT. Cardiac --no cardiac history --Revised Cardiac Risk Index for Pre-Operative Risk: 0 points, 0.4% risk of major cardiac event Pulmonary --no pulmonary history Neurological --no neurological or neurosurgical history; no history of trauma Anesthesia --no reported problems with anesthesia ECT is a low risk procedure. The relative benefits of the planned procedure outweigh the relative risks for this patient at this time. Visit type - Emergency Visit Emergency Visit: No - New Patient This patient is new to me today: Yes Date on this admission: 06/23/18 - Critical Care Critical Care patient: No
[2018-06-23] MEDS ORDERED: ACETAMINOPHEN 500 MG TABLET (FP) PO PRN (07:36)
[2018-06-23] MEDS ORDERED: PROMETHAZINE HCL 25 MG/1 ML VIAL IVPUSH PRN (07:36)
[2018-06-23] MEDS ORDERED: KETAMINE HCL 500 MG/10 ML VIAL ONE (07:42)
[2018-06-23] MEDS ORDERED: LACTATED RINGERS SOLUTION 1,000 ML IV SCH (07:45)
[2018-06-23 08:44] VITALS: TEMP 97.6
[2018-06-23 09:38] VITALS: BP 133/87; PULSE 84
== END 2018-06-23 09:10 ==
LOC: FECT 05:42
PROVIDERS: ATTEND Psychiatry & Neurology Psychiatry
PROC: GZB4ZZZ Other Electroconvulsive Therapy (ICD-10-PCS; principal; 2018-06-23 07:30)
DX: F25.0 Schizoaffective disorder, bipolar type (principal)
CPT/HCPCS: 90870; 94760

== ENCOUNTER 2018-06-26 05:56 | Day surgery (SDC) | payer OTHER ==
[2018-06-23 07:55] VITALS: BMI 22.5
[2018-06-26 07:19] VITALS: TEMP 98.1
[2018-06-26] MEDS ORDERED: KETAMINE HCL SYRINGES 150 MG/3 ML ONE (07:42)
[2018-06-26 09:08] VITALS: BP 121/77; PULSE 77
== END 2018-06-26 09:15 ==
LOC: FECT 05:56
PROVIDERS: ATTEND Psychiatry & Neurology Psychiatry
PROC: GZB4ZZZ Other Electroconvulsive Therapy (ICD-10-PCS; principal; 2018-06-26 08:00)
DX: F25.1 Schizoaffective disorder, depressive type (principal)
CPT/HCPCS: 90870; 94760

== ENCOUNTER 2018-06-30 05:43 | Day surgery (SDC) | payer OTHER | END 2018-06-30 09:00 | disposition home or self-care (01) | LOC: FECT 05:43 ==

== ENCOUNTER 2018-07-03 05:45 | Day surgery (SDC) | payer OTHER ==
[2018-07-03 07:00] VITALS: TEMP 98.2; BMI 22.5
[2018-07-03] MEDS ORDERED: KETAMINE HCL SYRINGES 150 MG/3 ML ONE (07:41)
[2018-07-03 09:12] VITALS: BP 131/90; PULSE 77
== END 2018-07-03 09:20 ==
LOC: FECT 05:45
PROVIDERS: ATTEND Psychiatry & Neurology Psychiatry
PROC: GZB4ZZZ Other Electroconvulsive Therapy (ICD-10-PCS; principal; 2018-07-03 08:15)
DX: F25.1 Schizoaffective disorder, depressive type (principal)
CPT/HCPCS: 90870; 94760

== ENCOUNTER 2018-07-07 05:47 | Day surgery (SDC) | payer OTHER ==
[2018-07-07 06:23] VITALS: BMI 21.7
[2018-07-07] MEDS ORDERED: KETAMINE HCL 500 MG/10 ML VIAL ONE (06:53)
[2018-07-07 08:02] VITALS: TEMP 98.3
[2018-07-07] MEDS ORDERED: ACETAMINOPHEN 325 MG TABLET (FP) PO PRN (08:10)
[2018-07-07] MEDS ORDERED: PROMETHAZINE HCL 25 MG/1 ML VIAL IVPB PRN (08:10)
[2018-07-07] MEDS ORDERED: LACTATED RINGERS SOLUTION 1,000 ML IV SCH (08:15)
[2018-07-07 08:26] VITALS: BP 136/84; PULSE 76
== END 2018-07-07 08:28 | disposition home or self-care (01) ==
LOC: FECT 05:47
PROVIDERS: ATTEND Psychiatry & Neurology Psychiatry
PROC: GZB4ZZZ Other Electroconvulsive Therapy (ICD-10-PCS; principal; 2018-07-07 07:15)
DX: F25.1 Schizoaffective disorder, depressive type (principal)
CPT/HCPCS: 90870; 94760

== ENCOUNTER 2018-07-10 05:44 | Day surgery (SDC) | payer OTHER ==
[2018-07-10 06:44] VITALS: TEMP 98; BMI 21.7
[2018-07-10] MEDS ORDERED: KETAMINE HCL SYRINGES 150 MG/3 ML ONE (07:03)
[2018-07-10 08:24] VITALS: BP 133/83; PULSE 76
== END 2018-07-10 08:30 | disposition home or self-care (01) ==
LOC: FECT 05:44
PROVIDERS: ATTEND Psychiatry & Neurology Psychiatry
PROC: GZB4ZZZ Other Electroconvulsive Therapy (ICD-10-PCS; principal; 2018-07-10 07:15)
DX: F25.1 Schizoaffective disorder, depressive type (principal)
CPT/HCPCS: 90870; 94760

== ENCOUNTER 2018-07-15 05:48 | Day surgery (SDC) | payer OTHER ==
[2018-07-10 09:08] VITALS: BMI 21.7
[2018-07-15] MEDS ORDERED: KETAMINE HCL SYRINGES 150 MG/3 ML ONE (06:47)
[2018-07-15] MEDS ORDERED: PROMETHAZINE HCL 25 MG/1 ML VIAL IVPUSH PRN (07:20)
[2018-07-15] MEDS ORDERED: ACETAMINOPHEN 325 MG TABLET (FP) PO PRN (07:20)
[2018-07-15] MEDS ORDERED: LACTATED RINGERS SOLUTION 1,000 ML IV SCH (07:30)
[2018-07-15 08:00] VITALS: TEMP 97.9
[2018-07-15 08:32] VITALS: BP 131/89; PULSE 72
== END 2018-07-15 08:34 | disposition home or self-care (01) ==
LOC: FECT 05:48
PROVIDERS: ATTEND Psychiatry & Neurology Psychiatry
PROC: GZB4ZZZ Other Electroconvulsive Therapy (ICD-10-PCS; principal; 2018-07-15 08:00)
DX: F25.1 Schizoaffective disorder, depressive type (principal)
CPT/HCPCS: 90870; 94760

== ENCOUNTER 2018-07-18 05:41 | Day surgery (SDC) | payer OTHER ==
[2018-07-18 06:48] VITALS: BMI 21.7
[2018-07-18] MEDS ORDERED: KETAMINE HCL SYRINGES 150 MG/3 ML ONE (07:09)
[2018-07-18 08:26] LABS: HEMATOCRIT 46.2 % (35.4-49); HEMOGLOBIN 14.6 GM/dl (11.7-16.9); MCH 28.9 pg (25.7-33.7); MCHC 31.7 g/dl (32.0-35.9); MEAN CELL VOLUME 91.1 fl (80-96); MEAN PLT VOLUME 7.7 fl (7.5-11.1); PLATELET COUNT 262 K/MM3 (134-434); RBC 5.07 M/mm3 (4.00-5.60); RDW 11.9 % (11.9-15.9); WHITE BLOOD COUNT 5.5 K/mm3 (4.0-10.8)
[2018-07-18 08:37] VITALS: BP 122/78; PULSE 76; TEMP 98.6
[2018-07-18 08:49] LABS: ALBUMIN 4.3 g/dl (3.4-5.0); ALK PHOS 48 U/L (45-117); ANION GAP 5 MMOL/L (8-16); BILIRUBIN,TOTAL 0.8 mg/dl (0.2-1); BLOOD UREA NITROGEN 11 mg/dl (7-18); CALCIUM 9.3 mg/dl (8.5-10); CHLORIDE 106 mmol/L (98-107); CO2 29 mmol/L (21-32); CREATININE 0.7 mg/dl (0.55-1.3); GLUCOSE,RANDOM 111 mg/dl (74-106); POTASSIUM 4.2 mmol/L (3.5-5.1); SGOT/AST 16 U/L (15-37); SGPT/ALT 17 U/L (13-61); SODIUM 140 mmol/L (136-145)
== END 2018-07-18 08:50 ==
LOC: FECT 05:41
PROVIDERS: ATTEND Psychiatry & Neurology Psychiatry
PROC: GZB4ZZZ Other Electroconvulsive Therapy (ICD-10-PCS; principal; 2018-07-18 07:00)
DX: F25.1 Schizoaffective disorder, depressive type (principal)
CPT/HCPCS: 36415; 80053; 83735; 85027; 90870; 94760

== ENCOUNTER 2018-07-21 05:45 | Day surgery (SDC) | payer OTHER ==
[2018-07-21 06:37] VITALS: BMI 22.1
[2018-07-21] MEDS ORDERED: KETAMINE HCL 500 MG/10 ML VIAL ONE (06:54)
[2018-07-21 07:59] VITALS: PULSE 78; TEMP 97.6
[2018-07-21 08:47] VITALS: BP 122/78
== END 2018-07-21 08:25 | disposition home or self-care (01) ==
LOC: FECT 05:45
PROVIDERS: ATTEND Psychiatry & Neurology Psychiatry
PROC: GZB4ZZZ Other Electroconvulsive Therapy (ICD-10-PCS; principal; 2018-07-21 07:45)
DX: F25.1 Schizoaffective disorder, depressive type (principal)
CPT/HCPCS: 90870; 94760

== ENCOUNTER 2018-07-24 05:49 | Day surgery (SDC) | payer OTHER ==
[2018-07-21 09:35] VITALS: BMI 21.7
[2018-07-24 06:30] VITALS: TEMP 98.1
[2018-07-24] MEDS ORDERED: KETAMINE HCL SYRINGES 150 MG/3 ML ONE (07:05)
[2018-07-24 08:37] VITALS: BP 129/82; PULSE 76
== END 2018-07-24 08:39 | disposition home or self-care (01) ==
LOC: FECT 05:49
PROVIDERS: ATTEND Psychiatry & Neurology Psychiatry
PROC: GZB4ZZZ Other Electroconvulsive Therapy (ICD-10-PCS; principal; 2018-07-24 07:15)
DX: F25.9 Schizoaffective disorder, unspecified (principal)
CPT/HCPCS: 90870; 94760

== ENCOUNTER 2018-07-31 05:44 | Day surgery (SDC) | payer OTHER ==
[2018-07-31 06:23] VITALS: BMI 21.7
[2018-07-31] MEDS ORDERED: LACTATED RINGERS SOLUTION 1,000 ML IV SCH (07:00)
--- NOTE | 2018-07-31 07:01 | HP ---
CHIEF COMPLAINT: Schizoaffective/bipolar disorder PCP: Dr. Kendall Saucedo, [place], [place] Primary Psych: Inpatient at [facility] HISTORY OF PRESENT ILLNESS: The patient is a 32 year-old male with a PMH significant for schizoaffective/ bipolar disorder and medication-induced pancreatitis. He began ECT in January 2018. He presents today for ECT. Events since last ECT: * Still resides at [facility]; hoping to move to structured living environment in next few weeks PAST MEDICAL HISTORY: Schizoaffective/bipolar disorder Pancreatitis PAST SURGICAL HISTORY: None reported Social History: Smoking: currrent every day Alcohol:occasional Drugs: denies Allergies clozapine [From Clozaril] Allergy (Severe, Verified 07/21/18 06:27) Rash lamotrigine [From Lamictal] Allergy (Severe, Verified 07/21/18 06:27) Rash HOME MEDICATIONS: Home Medications Medication Instructions Recorded [place] Carbonate [Eskalith -] 600 mg PO BID 03/24/18 Benztropine Mesylate [Cogentin -] 1 mg PO BID 04/10/18 Olanzapine [Zyprexa] 15 mg IM BID PRN 04/10/18 Olanzapine 15 mg PO BID 05/30/18 REVIEW OF SYSTEMS CONSTITUTIONAL: Absent: fever, chills, diaphoresis, generalized weakness, malaise, loss of appetite, weight change HEENT: Absent: rhinorrhea, nasal congestion, throat pain, throat swelling, difficulty swallowing, mouth swelling, ear pain, eye pain, visual changes CARDIOVASCULAR: Absent: chest pain, syncope, palpitations, irregular heart rate, lightheadedness , peripheral edema RESPIRATORY: Absent: cough, shortness of breath, dyspnea with exertion, orthopnea, wheezing, stridor, hemoptysis GASTROINTESTINAL: Absent: abdominal pain, abdominal distension, nausea, vomiting, diarrhea, constipation, melena, hematochezia GENITOURINARY: Absent: dysuria, frequency, urgency, hesitancy, hematuria, flank pain, genital pain MUSCULOSKELETAL: Absent: myalgia, arthralgia, joint swelling, back pain, neck pain SKIN: Absent: rash, itching, pallor HEMATOLOGIC/IMMUNOLOGIC: Absent: easy bleeding, easy bruising, lymphadenopathy, frequent infections ENDOCRINE: Absent: unexplained weight gain, unexplained weight loss, heat intolerance, cold intolerance NEUROLOGIC: Absent: headache, focal weakness or paresthesias, dizziness, unsteady gait, seizure, mental status changes, bladder or bowel incontinence PHYSICAL EXAMINATION Vital Signs - 24 hr 07/31/18 06:13 Temperature 98.5 F Pulse Rate 71 Respiratory 18 Rate Blood Pressure 113/78 O2 Sat by Pulse 99 Oximetry (%) GENERAL: Awake, alert, and fully oriented, in no acute distress. HEAD: Normal with no signs of trauma. EYES: Pupils equal, round and reactive to light, sclera anicteric, conjunctiva clear. LUNGS: Breath sounds equal, clear to auscultation bilaterally. No wheezes, and no crackles. No accessory muscle use. HEART: Regular rate and rhythm, normal S1 and S2 ABDOMEN: Soft, nontender, not distended MUSCULOSKELETAL: Normal range of motion at all joints. No bony deformities or tenderness. No CVA tenderness. UPPER EXTREMITIES: 2+ pulses, warm, well-perfused. No cyanosis. No clubbing. No peripheral edema. LOWER EXTREMITIES: 2+ pulses, warm, well-perfused. No calf tenderness. No peripheral edema. NEUROLOGICAL: Cranial nerves II-XII intact. Normal speech. ASSESSMENT/PLAN: The patient is a 32 year-old male with a PMH significant for schizoaffective/ bipolar disorder and medication-induced pancreatitis. He presents today for ECT. Cardiac --no cardiac history --Revised Cardiac Risk Index for Pre-Operative Risk: 0 points, 0.4% risk of major cardiac event Pulmonary --no pulmonary history Neurological --no neurological or neurosurgical history; no history of trauma Anesthesia --no reported problems with anesthesia ECT is a low risk procedure. The relative benefits of the planned procedure outweigh the relative risks for this patient at this time. Visit type - Emergency Visit Emergency Visit: No - New Patient This patient is new to me today: Yes Date on this admission: 07/31/18 - Critical Care Critical Care patient: No
[2018-07-31] MEDS ORDERED: KETAMINE HCL SYRINGES 150 MG/3 ML ONE (07:47)
[2018-07-31 09:14] VITALS: TEMP 98.1
[2018-07-31 09:56] VITALS: BP 114/76; PULSE 77
== END 2018-07-31 09:45 ==
LOC: FECT 05:44
PROVIDERS: ATTEND Psychiatry & Neurology Psychiatry
PROC: GZB4ZZZ Other Electroconvulsive Therapy (ICD-10-PCS; principal; 2018-07-31 08:15)
DX: F25.9 Schizoaffective disorder, unspecified (principal)
CPT/HCPCS: 90870; 94760

== ENCOUNTER 2018-08-04 05:44 | Day surgery (SDC) | payer OTHER ==
[2018-07-31 11:44] VITALS: BMI 21.7
[2018-08-04] MEDS ORDERED: KETAMINE HCL 500 MG/10 ML VIAL ONE (06:58)
[2018-08-04 08:19] VITALS: BP 116/78; PULSE 81; TEMP 98.1
--- NOTE | 2018-08-04 11:22 | EKG ---
Test Reason : Blood Pressure : / mmHG Vent. Rate : 073 BPM Atrial Rate : 073 BPM P-R Int : 146 ms QRS Dur : 092 ms QT Int : 370 ms P-R-T Axes : -06 -27 -03 degrees QTc Int : 407 ms NORMAL SINUS RHYTHM LATERAL INFARCT NONSPECIFIC ST ABNORMALITY ABNORMAL ECG NO PREVIOUS ECGS AVAILABLE Confirmed by DIANA THIBODEAUX, TOMAS ([id number]) on 08/04/2018 11:22:04 AM Referred By: Jaron Kay Confirmed By:TOMAS ORTIZ MD
== END 2018-08-04 08:35 | disposition home or self-care (01) ==
LOC: FECT 05:44
PROVIDERS: ATTEND Psychiatry & Neurology Psychiatry
PROC: GZB4ZZZ Other Electroconvulsive Therapy (ICD-10-PCS; principal; 2018-08-04 07:30)
DX: F25.1 Schizoaffective disorder, depressive type (principal)
CPT/HCPCS: 90870; 93005; 94760

== ENCOUNTER 2018-08-07 05:42 | Day surgery (SDC) | payer OTHER ==
[2018-08-01 14:19] VITALS: BMI 21.7
[2018-08-07] MEDS ORDERED: KETAMINE HCL SYRINGES 150 MG/3 ML ONE (06:59)
[2018-08-07 08:28] VITALS: TEMP 98.1
[2018-08-07 08:31] VITALS: BP 118/89; PULSE 88
== END 2018-08-07 08:30 | disposition home or self-care (01) ==
LOC: FECT 05:42
PROVIDERS: ATTEND Psychiatry & Neurology Psychiatry
PROC: GZB4ZZZ Other Electroconvulsive Therapy (ICD-10-PCS; principal; 2018-08-07 07:00)
DX: F25.9 Schizoaffective disorder, unspecified (principal)
CPT/HCPCS: 90870; 94760

== ENCOUNTER 2018-08-11 05:48 | Day surgery (SDC) | payer OTHER ==
[2018-08-08 12:10] VITALS: BMI 21.7
[2018-08-11 07:05] VITALS: TEMP 97.6
[2018-08-11] MEDS ORDERED: KETAMINE HCL 500 MG/10 ML VIAL ONE (07:14)
[2018-08-11 09:16] VITALS: BP 129/89; PULSE 76
== END 2018-08-11 09:00 ==
LOC: FECT 05:48
PROVIDERS: ATTEND Psychiatry & Neurology Psychiatry
PROC: GZB4ZZZ Other Electroconvulsive Therapy (ICD-10-PCS; principal; 2018-08-11 07:45)
DX: F25.1 Schizoaffective disorder, depressive type (principal)
CPT/HCPCS: 90870; 94760

== ENCOUNTER 2018-08-14 05:46 | Day surgery (SDC) | payer OTHER ==
[2018-08-11 13:22] VITALS: BMI 21.7
[2018-08-14 06:40] VITALS: TEMP 97.9
[2018-08-14] MEDS ORDERED: LACTATED RINGERS SOLUTION 1,000 ML IV SCH (07:15)
[2018-08-14] MEDS ORDERED: KETAMINE HCL SYRINGES 150 MG/3 ML ONE (07:25)
[2018-08-14 09:10] VITALS: BP 112/74; PULSE 84
== END 2018-08-14 09:00 ==
LOC: FECT 05:46
PROVIDERS: ATTEND Psychiatry & Neurology Psychiatry
PROC: GZB4ZZZ Other Electroconvulsive Therapy (ICD-10-PCS; principal; 2018-08-14 07:45)
DX: F25.9 Schizoaffective disorder, unspecified (principal)
CPT/HCPCS: 90870; 94760

== ENCOUNTER 2018-08-19 05:39 | Day surgery (SDC) | payer OTHER ==
[2018-08-19 06:56] VITALS: BMI 21.7
[2018-08-19] MEDS ORDERED: KETAMINE HCL SYRINGES 150 MG/3 ML ONE (07:04)
[2018-08-19 08:38] VITALS: TEMP 98.8
[2018-08-19 09:02] VITALS: BP 132/89; PULSE 84
== END 2018-08-19 08:50 ==
LOC: FECT 05:39
PROVIDERS: ATTEND Psychiatry & Neurology Psychiatry
PROC: GZB4ZZZ Other Electroconvulsive Therapy (ICD-10-PCS; principal; 2018-08-19 07:00)
DX: F25.9 Schizoaffective disorder, unspecified (principal)
CPT/HCPCS: 90870; 94760

== ENCOUNTER 2018-08-26 05:40 | Day surgery (SDC) | payer OTHER ==
[2018-08-26 06:40] VITALS: BMI 21.7
[2018-08-26] MEDS ORDERED: KETAMINE HCL SYRINGES 150 MG/3 ML ONE (06:58)
[2018-08-26 08:15] VITALS: TEMP 97.8
[2018-08-26 08:44] VITALS: BP 129/89; PULSE 77
== END 2018-08-26 08:45 ==
LOC: FECT 05:40
PROVIDERS: ATTEND Psychiatry & Neurology Psychiatry
PROC: GZB4ZZZ Other Electroconvulsive Therapy (ICD-10-PCS; principal; 2018-08-26 07:15)
DX: F25.9 Schizoaffective disorder, unspecified (principal)
CPT/HCPCS: 90870; 94760

== ENCOUNTER 2018-09-02 05:43 | Day surgery (SDC) | payer OTHER ==
[2018-08-29 17:37] VITALS: BMI 21.7
[2018-09-02 07:33] VITALS: TEMP 98.1
--- NOTE | 2018-09-02 07:55 | HP ---
CHIEF COMPLAINT: Schizoaffective/bipolar disorder PCP: Dr. Kendall Saucedo, [place], [place] Primary Psych: Inpatient at [facility] HISTORY OF PRESENT ILLNESS: The patient is a 32 year-old male with a PMH significant for schizoaffective/ bipolar disorder and medication-induced pancreatitis. He began ECT in January 2018. He presents today for ECT. Events since last ECT: * Still resides at [facility]; hoping to move to structured living environment in next few weeks PAST MEDICAL HISTORY: Schizoaffective/bipolar disorder Pancreatitis PAST SURGICAL HISTORY: None reported Social History: Smoking: currrent every day Alcohol:occasional Drugs: denies Allergies clozapine [From Clozaril] Allergy (Severe, Verified 08/29/18 17:35) Rash lamotrigine [From Lamictal] Allergy (Severe, Verified 08/29/18 17:35) Rash HOME MEDICATIONS: Home Medications Medication Instructions Recorded [place] Carbonate [Eskalith -] 600 mg PO BID 03/24/18 Benztropine Mesylate [Cogentin -] 1 mg PO BID 04/10/18 Olanzapine [Zyprexa] 15 mg IM BID PRN 04/10/18 Olanzapine 15 mg PO BID 05/30/18 Pimavanserin Tartrate [Nuplazid] 50 mg PO DAILY 08/26/18 REVIEW OF SYSTEMS CONSTITUTIONAL: Absent: fever, chills, diaphoresis, generalized weakness, malaise, loss of appetite, weight change HEENT: Absent: rhinorrhea, nasal congestion, throat pain, throat swelling, difficulty swallowing, mouth swelling, ear pain, eye pain, visual changes CARDIOVASCULAR: Absent: chest pain, syncope, palpitations, irregular heart rate, lightheadedness , peripheral edema RESPIRATORY: Absent: cough, shortness of breath, dyspnea with exertion, orthopnea, wheezing, stridor, hemoptysis GASTROINTESTINAL: Absent: abdominal pain, abdominal distension, nausea, vomiting, diarrhea, constipation, melena, hematochezia GENITOURINARY: Absent: dysuria, frequency, urgency, hesitancy, hematuria, flank pain, genital pain MUSCULOSKELETAL: Absent: myalgia, arthralgia, joint swelling, back pain, neck pain SKIN: Absent: rash, itching, pallor HEMATOLOGIC/IMMUNOLOGIC: Absent: easy bleeding, easy bruising, lymphadenopathy, frequent infections ENDOCRINE: Absent: unexplained weight gain, unexplained weight loss, heat intolerance, cold intolerance NEUROLOGIC: Absent: headache, focal weakness or paresthesias, dizziness, unsteady gait, seizure, mental status changes, bladder or bowel incontinence PHYSICAL EXAMINATION Vital Signs - 24 hr 09/02/18 07:28 Temperature 98.1 F Pulse Rate 68 Respiratory 18 Rate Blood Pressure 104/68 O2 Sat by Pulse 100 Oximetry (%) GENERAL: Awake, alert, and fully oriented, in no acute distress. HEAD: Normal with no signs of trauma. EYES: Pupils equal, round and reactive to light, sclera anicteric, conjunctiva clear. LUNGS: Breath sounds equal, clear to auscultation bilaterally. No wheezes, and no crackles. No accessory muscle use. HEART: Regular rate and rhythm, normal S1 and S2 ABDOMEN: Soft, nontender, not distended MUSCULOSKELETAL: Normal range of motion at all joints. No bony deformities or tenderness. No CVA tenderness. UPPER EXTREMITIES: 2+ pulses, warm, well-perfused. No cyanosis. No clubbing. No peripheral edema. LOWER EXTREMITIES: 2+ pulses, warm, well-perfused. No calf tenderness. No peripheral edema. NEUROLOGICAL: Cranial nerves II-XII intact. Normal speech. ASSESSMENT/PLAN: The patient is a 32 year-old male with a PMH significant for schizoaffective/ bipolar disorder and medication-induced pancreatitis. He presents today for ECT. Cardiac --no cardiac history --Revised Cardiac Risk Index for Pre-Operative Risk: 0 points, 0.4% risk of major cardiac event Pulmonary --no pulmonary history Neurological --no neurological or neurosurgical history; no history of trauma Anesthesia --no reported problems with anesthesia ECT is a low risk procedure. The relative benefits of the planned procedure outweigh the relative risks for this patient at this time. Visit type - Emergency Visit Emergency Visit: No - New Patient This patient is new to me today: Yes Date on this admission: 09/02/18 - Critical Care Critical Care patient: No
[2018-09-02] MEDS ORDERED: KETAMINE HCL SYRINGES 150 MG/3 ML ONE (08:25)
[2018-09-02] MEDS ORDERED: KETOROLAC TROMETHAMINE 30 MG/1 ML VIAL ONE (08:25)
[2018-09-02] MEDS ORDERED: ONDANSETRON 4 MG/2 ML VIAL ONE (08:25)
[2018-09-02] MEDS ORDERED: ONDANSETRON 4 MG/2 ML VIAL IVPUSH PRN (08:51)
[2018-09-02] MEDS ORDERED: LACTATED RINGERS SOLUTION 1,000 ML IV SCH (09:00)
[2018-09-02 10:03] VITALS: BP 130/89; PULSE 72
== END 2018-09-02 09:50 ==
LOC: FECT 05:43
PROVIDERS: ATTEND Psychiatry & Neurology Psychiatry
PROC: GZB4ZZZ Other Electroconvulsive Therapy (ICD-10-PCS; principal; 2018-09-02 07:30)
DX: F25.0 Schizoaffective disorder, bipolar type (principal)
CPT/HCPCS: 90870; 94760

== ENCOUNTER 2018-09-09 05:45 | Day surgery (SDC) | payer OTHER ==
[2018-09-05 12:58] VITALS: BMI 21.7
[2018-09-09] MEDS ORDERED: KETAMINE HCL SYRINGES 150 MG/3 ML ONE (07:06)
[2018-09-09 08:31] VITALS: TEMP 98
[2018-09-09 08:34] VITALS: BP 133/83; PULSE 77
[2018-09-09] MEDS ORDERED: ONDANSETRON 4 MG/2 ML VIAL IVPUSH PRN (09:17)
[2018-09-09] MEDS ORDERED: LACTATED RINGERS SOLUTION 1,000 ML IV SCH (09:30)
== END 2018-09-09 08:30 ==
LOC: FECT 05:45
PROVIDERS: ATTEND Psychiatry & Neurology Psychiatry
PROC: GZB4ZZZ Other Electroconvulsive Therapy (ICD-10-PCS; principal; 2018-09-09 07:30)
DX: F25.1 Schizoaffective disorder, depressive type (principal)
CPT/HCPCS: 90870; 94760